=== PATIENT | male | born 1995 | race Caucasian/White ===

== ENCOUNTER 2023-09-09 21:58 | Emergency (ER) | payer SELFPAY ==
--- NOTE | ~2023-09-09 | XR_ITS ---
EXAMINATION: XR chest 2V DATE: 09/09/2023 22:23 INDICATION: Chest pain. Left arm and face numbness and tingling. TECHNIQUE: Frontal and lateral views of the chest were obtained. COMPARISON: None. FINDINGS: There is no pneumonia, pleural effusion, or pneumothorax. The heart size is normal. IMPRESSION: 1. No acute cardiopulmonary disease. Reviewed, dictated and finalized at location E.
[2023-09-09 21:45] VITALS: BP 125/83; PULSE 85; RESP 12; TEMP 37; O2SAT 99
--- NOTE | 2023-09-09 22:03 | ECG_ITS ---
SEE SCANNED COPY FOR CONFIRMED REPORT MTDD
[2023-09-09 22:25] LABS: Basophils Absolute Auto 0.1 K/mm3 (0.0-0.1); Basophils Percent Auto 0.5 % (0.2-1.2); Eosinophils Absolute Auto 0.2 K/mm3 (0-0.3); Eosinophils Percent Auto 1.8 % (0-4.4); Hematocrit 44.2 % (42.0-52.0); Hemoglobin 15.3 g/dL (14.0-18.0); Immature Granulocyte Absolute 0.02 K/mm3 (0.00-0.031); Immature Granulocyte Percent A 0.2 % (0-0.5); Lymphocytes Absolute Auto 3.42 K/mm3 (0.9-3.2); Lymphocytes Percent Auto 32.5 % (18.3-44.2); Mean Corpuscular HGB Conc 34.6 g/dl (32-36); Mean Corpuscular Hemoglobin 31.7 pg (26-34); Mean Corpuscular Volume 91.7 fl (80-100); Mean Platelet Volume 10.1 fl (7.4-10.4); Monocytes Absolute Auto 0.7 K/mm3 (0.1-0.6); Monocytes Percent Auto 6.3 % (2.6-8.5); Neutrophils Absolute Auto 6.2 K/mm3 (1.3-6.7); Neutrophils Percent Auto 58.7 % (45.5-73.1); Platelet Count Result 239 k/mm3 (150-375); Red Blood Count 4.82 M/mm3 (4.6-6.20); Red Cell Distribution Width 12.5 % (11.5-14.5); White Blood Count 10.5 K/mm3 (4.5-10.0)
[2023-09-09 22:26] VITALS: O2SAT 99
[2023-09-09 22:34] LABS: Alanine Aminotransferase 18 U/L (6-50); Albumin Level 3.9 g/dL (3.5-5.1); Alkaline Phosphatase 78 U/L (38-126); Anion Gap 5 mmol/L (4-12); Aspartate Amino Transferase 27 U/L (17-59); Bilirubin,Total 0.4 mg/dL (0.2-1.3); Blood Urea Nitrogen 7 mg/dL (9-20); Calcium 8.4 mg/dL (8.4-10.2); Carbon Dioxide 26 mmol/L (22-30); Chloride 107 mmol/L (98-107); Estimated CRCL calculation 116 ml/min; Estimated Glomerular Filt Rate > 60; Glucose 93 mg/dL (65-110); Lipase 49 U/L (23-300); Potassium 3.2 mmol/L (3.4-5.0); Sodium 138 mmol/L (137-145)
[2023-09-09 22:37] LABS: Partial Thromboplastin Time 25.7 Seconds (22.3-36.8); Prothrombin Time 13.7 Seconds (11.1-14.7)
[2023-09-09 22:46] LABS: Troponin I < 0.012 ng/mL (0.000-0.034)
--- NOTE | 2023-09-09 23:08 | PC.NURSE ---
care and report given to LUIZ Everett. all questions answered.
[2023-09-09 23:11] VITALS: BP 116/74; PULSE 96; RESP 15; O2SAT 100
[2023-09-09 23:15] VITALS: BP 109/77; PULSE 74; PULSE 89; RESP 16; TEMP 36.6; O2SAT 100
[2023-09-09] MEDS: SODIUM CHLORIDE 0.9% IV 1,000 ML 999 ML IV CONT (23:56)
[2023-09-09] MEDS: POTASSIUM CHLORIDE 20 MEQ ER TABLET 40 MEQ PO (23:56)
--- NOTE | 2023-09-10 00:40 | ED.CHESTPAIN ---
HPI - Chest Pain General Chief Complaint: Chest Pain Stated Complaint: cp, anxiety Time Seen by Provider: 09/09/23 23:42 History of Present Illness HPI narrative: Patient is a 28-year-old male who presents to the emergency department to this evening complaining of chest pain. Patient admits that the pain feels like a pressure and believes that he could be anxiety. He denies any previous history of anxiety. Patient admits that he has been under a lot of stress lately and has only been getting 3-4 hours sleep due to work. 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 Denies any significant past medical history. Patient states that he also has not had anything to eat today, only candy, soda and a monster energy drink. Patient states that he has felt shaky as if he is having chills, denies any fevers, and denies upper respiratory symptoms or any shortness of breath. Patient admits tobacco use but denies any illicit drug use. No additional concerns or symptoms at this time. Related Data Allergies Allergy/AdvReac Type Severity Reaction Status Date / Time amoxicillin Allergy Unknown Verified 09/09/23 23:16 Penicillins Allergy Unknown Verified 09/09/23 23:16 tramadol Allergy Unknown Verified 09/09/23 23:16 Review of Systems Review of Systems: All systems are reviewed and are negative unless stated otherwise in the HPI. PMFSH Comments Denies a significant past medical history, surgical history significant for tonsillectomy, wisdom tooth removal and bone spur removal. Patient admits to a 3 pack year smoking history, denies any alcohol abuse or illicit drug use. Exam Narrative: General: Alert, awake, afebrile, in no acute distress. HEENT: PERRL, no rhinorrhea, no post nasal drip, oropharynx clear. Neck: Trachea midline, no JVD, no lymphadenopathy. Cardiovascular: Regular rate and rhythm, no murmurs, rubs or gallops, no peripheral edema. Respiratory: Clear to auscultation bilaterally, no tachypnea, no wheezing, no rhonchi, no rubs, no respiratory distress. Abdomen: Soft, nontender, nondistended, no rebound, no guarding, no peritoneal signs. Musculoskeletal: No joint swelling or deformity, normal muscle tone. Skin: No rashes or petechia, no signs of infection. Psychiatric: Alert and oriented, normal behavior and judgment for situation. Neurological: Alert and oriented to person, place, and time. Follows all commands. No focal deficits, speech is clear and fluent. Course Vital Signs Vital signs: Vital Signs Temperature 98.6 F 09/09/23 21:45 Pulse Rate 85 09/09/23 21:45 Respiratory Rate 12 09/09/23 21:45 Blood Pressure 125/83 09/09/23 21:45 Pulse Oximetry 99 09/09/23 21:45 Oxygen Delivery Room Air 09/09/23 21:45 Temperature 98 F 09/09/23 23:15 Pulse Rate 89 09/09/23 23:15 Respiratory Rate 16 09/09/23 23:15 Blood Pressure 109/77 09/09/23 23:15 Pulse Oximetry 100 09/09/23 23:15 Oxygen Delivery Room Air 09/09/23 22:26 MDM - Chest Pain MDM Narrative Medical decision making narrative: The patient was evaluated by myself in the emergency department. History is obtained from patient who is an independent historian and physical exam was performed. External medical records were reviewed at this time. IV was established and pertinent tests were ordered. Patient was administered a 1 L IV fluid bolus with normal saline. EKG was obtained which revealed sinus rhythm at a rate of 75 beats per minute. No ST changes, T wave inversions or evidence of acute ischemia. EKG was independently interpreted by me and is currently pending official cardiology read. Patient has a low heart score of 2. Laboratory results obtained revealing potassium level of 3.2, otherwise unremarkable. At this time, patient was administered 40 mEq of oral potassium. Imaging studies obtained included CXR which was independently interpreted by me revealing no acute process, which is pending светлана
== END 2023-09-10 00:58 | disposition home or self-care (01) ==
PROVIDERS: Emergency Provider Emergency Medicine
DX: R07.89 Other chest pain (principal); F17.210 Nicotine dependence, cigarettes, uncomplicated
CPT/HCPCS: 36415; 71046; 80053; 83690; 84484; 85025; 85610; 85730; 93005; 96360; 99284; A9270; J7030